=== PATIENT | male | born 1960 | race Caucasian/White ===

== ENCOUNTER 2017-02-08 16:12 | Emergency (ER) | payer BC ==
[2017-02-08 16:22] VITALS: BP 130/65
[2017-02-08 16:31] LABS: Urine Bilirubin Negative (NEGATIVE); Urine Blood Negative /ul (NEGATIVE); Urine Ketone Negative (NEGATIVE); Urine Nitrite Negative (NEGATIVE); Urine Protein Negative (NEGATIVE); Urine Specific Gravity 1.015 SP.GR. (1.005-1.030); Urine Urobilinogen Normal (NORMAL); Urine pH 7.5 pH (5.0-7.0)
--- OUTSIDE RECORDS SUMMARY | 2017-02-08 16:36 | XMS REPORT | Continuity of Care Document ---
:1960 Demographics Phone Unavailable Preferred Language Unknown Marital Status Unknown Sikh Affiliation Unknown Race Unknown Ethnic Group Unknown Author Organization [facility] ([facility]) Address [place] [address] Phone [phone] Care Team Providers Name Role Phone Unavailable Primary Care Provider Unavailable Source Comments This disclosure is being made pursuant to the Care Everywhere program, applicable federal and state laws, and may not contain all informaitonavailable regarding this patient.[facility] ([facility]) Active Allergies and Adverse Reactions Not on File Current Medications Not on file Active Problems Not on file Most Recent Encounters Date Type Specialty Providers Description 11/16/2016 Lab Requisition Pathology [facility], [facility] Dx: Melanocytic nevi of trunk Social History Tobacco Use Types Packs/Day Years Used Date Never Assessed Plan of Care Health Maintenance Due Date Last Done Comments HCV Screening 1960 Hepatitis B Vaccine (1 of 3 - Primary Series) 1960 Tdap Vaccine 1971 Lipid Disorder Screening 1978 MMR Vaccine 1978 Td Vaccine 1978 Colonoscopy 2010 Prostate Cancer Screening 2010 Influenza Vaccine: Seasonal (#1) 05/24/2016 Results from Last 3 Months DERMATOPATHOLOGY EXAM (11/12/2016 9:00 AM) Component Value Range Case Report Surgical Pathology Case: [id number] Authorizing Provider:[facility], [facility] Collected: 11/12/2016 09:00 AM Pathologist: Jenni Higuera MD Received:11/16/2016 09:40 AM Specimen:Skin, other, specify, L upper back Diagnosis Skin, left upper back, punch: Dysplastic junctional nevus with moderate atypia. I have personally reviewed this case and edited the report as necessary. Clinical Information Tissue source/site: Skin punch / L upper back. Pertinent clinical history and findings: 0.4 cm dark macule. Clinical differential diagnosis: Atypical nevus. Gross Description A.Received in formalin, in a container labeled Naga Monge, date of , and "L upper back", is a 0.5 cm in diameter x 0.7 cm in length blunt punch biopsy.The specimen is inked, bisected andsubmitted entirely in A1. ATC/tkr Microscopic Description Sections show a lentiginous single cell and nested proliferation of moderately atypicalmelanocytes intraepidermally along the dermal-epidermal junction.Bridging and concentric fibroplasia are seen.Margins appear uninvolved in the plane of sectioning. Performed by:Ludwin Aviles MD, R4/rls Specimen Skin - Skin, other, specify
[2017-02-08 16:46] LABS: Urine Appearance Clear; Urine Color Yellow; Urine RBC None Seen /hpf (0-5); Urine WBC 0-5 /hpf (0-5)
[2017-02-08 16:47] LABS: Urine Amorphous Sediment Few - 1+ (NONE-FEW); Urine Bacteria 1+
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
== END 2017-02-08 16:55 | disposition home or self-care (01) ==
LOC: ER 16:12
DX: S33.9XXA Sprain of unspecified parts of lumbar spine and pelvis, initial encounter (principal); Z87.891 Personal history of nicotine dependence; X58.XXXA Exposure to other specified factors, initial encounter